=== PATIENT | female | born 1980 | race Caucasian/White ===

== ENCOUNTER 2017-10-28 22:29 | Emergency (ER) | payer OTHER ==
[2017-10-28] MEDS: methylPREDNISolone INJ 125 MG/2 ML VIAL (J2930) IV (23:12)
[2017-10-28] MEDS: FAMOTIDINE IV BAG 20 MG in APPROPRIATE DILUENT 1 EA IV (23:12)
[2017-10-28] MEDS: NS 1,000 ML IV (23:12)
== END 2017-10-29 01:57 | disposition home or self-care (01) ==
LOC: M ED 22:29
DX: T78.40XA Allergy, unspecified, initial encounter (principal); Y92.9 Unspecified place or not applicable; Y93.9 Activity, unspecified; Z79.899 Other long term (current) drug therapy; Z91.012 Allergy to eggs
CPT/HCPCS: J2930

== ENCOUNTER → 2020-01-25 | Outpatient (REF) | payer OTHER ==
[~2020-01-25] MED LIST: LEVO112T2 PO; PHEN-239 PO; PRED20TA PO; ZOLO50TA PO
[2020-01-25 13:29] LABS: PERCENT SATURATION 22.1 % (13.2-45.0)
== END ==
LOC: M LAB REF 12:24
PROVIDERS: ATTEND Internal Medicine
DX: Z00.01 Encounter for general adult medical examination with abnormal findings (principal); Z98.84 Bariatric surgery status

== ENCOUNTER → 2020-08-24 | Outpatient (CLI) | payer OTHER ==
[~2020-08-24] MED LIST changes: +BIOT50004 PO; +LEVO2TA PO; +LORA-243 PO; +PROAAER10 INH; +SYMB80INH INH; +VENL150C43 PO
== END ==
LOC: M LABSMTC 10:53
PROVIDERS: ATTEND Anesthesiology
DX: Z01.812 Encounter for preprocedural laboratory examination (principal); Z11.52 Encounter for screening for COVID-19

== ENCOUNTER 2020-08-29 08:57 | Day surgery (SDC) | payer BC, OTHER ==
[~2020-08-29] VITALS: Ht 167.6 cm; Wt 86.6 kg
[~2020-08-29 08:57] MED LIST changes: +LIDOCAINE 1% MDV 20ML VIAL SQ PRN; +LR 1,000 ML IV ONE
[2020-08-29] MEDS ORDERED: fentaNYL 250 MCG/5 ML INJECTION (J3010) As Ordered ONE (12:30)
[2020-08-29] MEDS ORDERED: propofoL 200 MG/20 ML VIAL As Ordered ONE (12:31)
[2020-08-29] MEDS ORDERED: MIDAZOLAM INJ 2MG/2ML VIAL (J2250 PER 1MG) As Ordered ONE (12:31)
[2020-08-29] MEDS ORDERED: ROCURONIUM BROMIDE 50 MG/5 ML VIAL As Ordered ONE (12:31)
[2020-08-29] MEDS ORDERED: LIDOCAINE 2% 100MG/5ML SDV (FOR ANES.) As Ordered ONE (12:32)
[2020-08-29] MEDS ORDERED: ACETAMINOPHEN 1000MG 100ML IV BTL (OFIRMEV) (J0131 PER 10MG) As Ordered ONE (12:32)
[2020-08-29] MEDS ORDERED: dexameTHASONE 4 MG/ML 1ML VIAL (J1100 PER 1MG) As Ordered ONE (12:32)
[2020-08-29] MEDS ORDERED: ONDANSETRON 4MG/2ML VIAL As Ordered ONE (12:33)
[2020-08-29] MEDS ORDERED: KETOROLAC 60MG 2ML VIAL As Ordered ONE (12:36)
[2020-08-29] MEDS ORDERED: IODINE STRONG SOLN 15 ML BTL As Ordered ONE (13:11)
[2020-08-29] MEDS ORDERED: LR 1,000 ML IV SCH (14:55)
[2020-08-29] MEDS ORDERED: ONDANSETRON 4MG/2ML VIAL IV PRN (14:55)
[2020-08-29] MEDS ORDERED: fentaNYL 100 MCG/2 ML INJECTION (J3010) IV PRN (14:55)
[2020-08-29] MEDS ORDERED: METOCLOPRAMIDE INJ 10MG/2ML VIAL (J2765 PER 1) IV PRN (14:55)
[2020-08-29] MEDS ORDERED: PERCOCET 5MG/325MG TAB PO PRN (14:55)
[2020-08-29] MEDS ORDERED: IBUPROFEN 600MG TAB PO PRN (15:00)
[2020-08-29] MEDS ORDERED: oxyCODONE 5MG TAB PO PRN (15:10)
[2020-08-29 16:00] VITALS: BP 123/81
--- NOTE | 2020-08-30 10:36 | RO ---
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 PROCEDURE: Fractional D&C, hysteroscopy, colposcopy with LEEP conization of cervix. SURGEON: Monique Morelos MD [employer] COURTESY CLERK: None. ANESTHESIA: LMA. SPECIMEN: Endocervical curettage, LEEP conization specimen with top hat aspect and endometrium from D&C, hysteroscopy with use of MyoSure. DESCRIPTION OF PROCEDURE/FINDINGS: Kirsten was brought to the operating room where sufficient anesthesia was induced and she was prepped, draped and positioned in the usual sterile fashion, tissues prepped in normal way. The bladder was emptied and cervix grasped with single tooth tenaculum and endocervical curettage with Kevorkian curet carried out and sample was sent separately. I then dilated the cervix in order to allow introduction of the hysteroscope and then the MyoSure was used for the curettage and resection of the endometrial lining. Some pictures were taken to document the progress here. There were no polyps, just some unroofed overgrowth of the endometrium from the endocervical curettage and the dilation. After the hysteroscopy, curettage and the MyoSure resection we proceeded to the colposcopy with LEEP. The dilute vinegar was placed next to the cervix while all the equipment was set up. We then performed colposcopy but we did have some trouble with the colposcope, it is functionally difficult to get the LEEP device in the wand and the length of it in between the colposcope and the cervix and keep focus. The focus range on the current colposcope is such that we had to look, take a sample based on what we had seen and then go back and double check. But never the less we were able to do full resection of the transition zone and this patient has had a tubal and not worried about fertility and with her path findings a second smaller loop was used for top hat resection as well and then a ball was used to cauterize the base of the LEEP conization resection for good hemostasis with good results. Specimens were all sent for pathologic evaluation. The procedure was then ended. ESTIMATED BLOOD LOSS FOR PROCEDURE: Only about 5 mL. Fortunately the cautery worked quite well today. FLUID REPLACEMENT: Crystalloid. COMPLICATIONS: None. CONDITION/DISPOSITION: Kirsten tolerated the procedure well and was recovering in the recovery room in good condition.
== END 2020-08-29 16:00 | disposition home or self-care (01) ==
LOC: M SDC 08:57
PROVIDERS: ATTEND Obstetrics & Gynecology
DX: R87.612 Low grade squamous intraepithelial lesion on cytologic smear of cervix (LGSIL) (principal); R55 Syncope and collapse; K21.9 Gastro-esophageal reflux disease without esophagitis; E03.9 Hypothyroidism, unspecified; C73 Malignant neoplasm of thyroid gland; F41.9 Anxiety disorder, unspecified; F32.9 Major depressive disorder, single episode, unspecified; J45.909 Unspecified asthma, uncomplicated; R06.83 Snoring; Z92.3 Personal history of irradiation; F17.210 Nicotine dependence, cigarettes, uncomplicated; Z98.84 Bariatric surgery status; Z91.010 Allergy to peanuts; Z91.012 Allergy to eggs; Z79.899 Other long term (current) drug therapy; Z79.51 Long term (current) use of inhaled steroids
CPT/HCPCS: 57461; 58558; 88305; 88307; J0131; J1100; J1885; J2250; J2405; J3010

== ENCOUNTER → 2022-06-03 | Outpatient (REF) | payer BC, OTHER ==
[~2022-06-03] MED LIST changes: -LIDOCAINE 1% MDV 20ML VIAL SQ PRN; -LR 1,000 ML IV ONE
== END ==
LOC: M LAB REF 17:15
PROVIDERS: ATTEND Nurse Practitioner Family
DX: R30.0 Dysuria (principal)

== ENCOUNTER → 2023-10-07 | Outpatient (CLI) | payer OTHER ==
[~2023-10-07] MED LIST changes: -BIOT50004 PO; +BIOT5CAP8 PO
== END ==
LOC: M RAD 07:01
PROVIDERS: ATTEND Nurse Practitioner
DX: G40.909 Epilepsy, unspecified, not intractable, without status epilepticus (principal)